=== PATIENT | female | born 1985 | race Caucasian/White ===

== ENCOUNTER → 2018-05-14 | Outpatient (CLI) | payer BC ==
--- NOTE | 2018-05-14 18:19 | RADIOLOGY REPORT (SQ) ---
EXAM DESCRIPTION: TOE LEFT COMPLETED DATE/TIME: 05/14/2018 6:09 pm REASON FOR STUDY: PAIN IN left TOE M79.674 PAIN IN RIGHT TOE(S) COMPARISON: None. NUMBER OF VIEWS: Three views. TECHNIQUE: AP, lateral, and oblique images acquired of the left first toe. LIMITATIONS: None. FINDINGS: MINERALIZATION: Normal. BONES: No acute fracture or dislocation. No worrisome bone lesions. JOINTS: No effusions. SOFT TISSUES: No soft tissue swelling. No foreign body. OTHER: No other significant finding. IMPRESSION: NEGATIVE STUDY OF THE LEFT TOE. NO RADIOGRAPHIC EVIDENCE OF ACUTE INJURY. COMMENT: SITE OF TRAUMA/COMPLAINT MARKED/STAMP COMPLETED: Yes TECHNICAL DOCUMENTATION: JOB ID: [id number]- All Rights Reserved Reading location - IP/workstation name: [email or web address]
== END ==
LOC: RAD 17:33
PROVIDERS: ATTEND Nurse Practitioner Family
DX: M79.674 Pain in right toe(s) (principal)

== ENCOUNTER 2019-03-02 16:27 | Emergency (ER) | payer BC, OTHER ==
--- NOTE | 2019-03-02 17:47 | ER Document Report ---
ED Medical Screen (RME) - General Chief Complaint: Abnormal Lab Results Stated Complaint: ABNORMAL LABS, SHORT OF BREATH Time Seen by Provider: 03/02/19 17:39 Primary Care Provider: ARMIN GRAY [Primary Care Provider] - Follow up as needed Notes: Patient is a 33-year-old female with a history of ITP and anemia who presents to emergency department with a chief complaint of dizziness. Patient reports earlier this morning she was at work around 930 when she went to go use the restroom. Patient reports she is on her menstrual cycle and did notice some clots in the toilet. Patient reports she got up was washing her hands when she started to see stars. Patient reports she felt like she was going to pass out but did not. Patient reports she did sit down at that time and drink a glass of orange juice. Patient reports that she is felt nauseous and fatigued. Patient reports she did have labs drawn at [facility] and reports a hemoglobin of 8.6. Patient reports she has had a tubal ligation and does have regular periods that are not heavy. Patient reports she did take 65 mg tablets x2 of iron today. TRAVEL OUTSIDE OF THE [place] IN LAST 30 DAYS: No - Related Data Allergies/Adverse Reactions: No Known Drug Allergies Allergy (Verified 03/02/19 17:29) Past Medical History - Social History Chew tobacco use (# tins/day): No Frequency of alcohol use: None Drug Abuse: None Past Surgical History: Reports: Hx Section, Hx Oral Surgery - Immunizations Immunizations up to date: Yes Hx Diphtheria, Pertussis, Tetanus Vaccination: Yes Physical Exam - Vital signs Vitals: Temp Pulse Resp BP Pulse Ox 98.1 F 79 16 133/80 H 100 03/02/19 16:30 03/02/19 16:30 03/02/19 16:30 03/02/19 16:30 03/02/19 16:30 Course - Re-evaluation Re-evalutation: 03/02/19 17:46 I have greeted and performed a rapid initial assessment of this patient. A comprehensive ED assessment and evaluation of the patient, analysis of test results and completion of the medical decision making process will be conducted by additional ED providers. - Vital Signs Vital signs: Temp Pulse Resp BP Pulse Ox 98.1 F 79 16 133/80 H 100 03/02/19 16:30 03/02/19 16:30 03/02/19 16:30 03/02/19 16:30 03/02/19 16:30 Doctor's Discharge - Discharge Referrals: LOCALMD,NO [Primary Care Provider] - Follow up as needed
[2019-03-02 18:23] LABS: ABSOLUTE BASOPHILS # (AUTO) 0.1 10^3/uL (0.0-0.2); ABSOLUTE LYMPHOCYTES (AUTO) 1.6 10^3/uL (0.5-4.7); ABSOLUTE MONOCYTES (AUTO) 0.3 10^3/uL (0.1-1.4); ABSOLUTE NEUT (AUTO) 3.3 10^3/uL (1.7-8.2); BASOPHILS % (AUTO) 1.1 % (0-2); EOSINOPHILS % (AUTO) 0.6 % (0-6); HEMATOCRIT 29.7 % (36.0-47.0); HEMOGLOBIN 9.1 g/dL (12.0-15.5); LYMPHOCYTES % (AUTO) 29.6 % (13-45); MEAN CORPUSCULAR HEMOGLOBIN 19.9 pg (27.0-33.4); MEAN CORPUSCULAR HGB CONC 30.5 g/dL (32.0-36.0); MEAN CORPUSCULAR VOLUME 65 fl (80-97); MONOCYTES % (AUTO) 5.4 % (3-13); PLATELET COUNT 336 10^3/uL (150-450); RED BLOOD COUNT 4.57 10^6/uL (3.72-5.28); RED CELL DISTRIBUTION WIDTH 16.7 % (11.5-14.0); SEGMENTED NEUTROPHILS % (AUTO) 63.3 % (42-78); TOTAL CELLS COUNTED % (AUTO) 100 %; WHITE BLOOD COUNT 5.3 10^3/uL (4.0-10.5)
[2019-03-02 18:35] LABS: INTERNATIONAL RATION (INR) 1.11; PROTHROMBIN TIME 14.3 SEC (11.4-15.4)
[2019-03-02 18:36] LABS: PARTIAL THROMBOPLASTIN TIME 31.5 SEC (23.5-35.8)
[2019-03-02 18:44] LABS: ALBUMIN 4.9 g/dL (3.5-5.0); ALKALINE PHOSPHATASE 84 U/L (38-126); ANION GAP 16 (5-19); ASPARTATE AMINO TRANSFERASE 17 U/L (14-36); BILIRUBIN,DIRECT 0.1 mg/dL (0.0-0.4); BILIRUBIN,TOTAL 0.4 mg/dL (0.2-1.3); BLOOD UREA NITROGEN 8 mg/dL (7-20); CALCIUM 10.1 mg/dL (8.4-10.2); CARBON DIOXIDE 21 mmol/L (22-30); CHLORIDE 104 mmol/L (98-107); GLUCOSE 103 mg/dL (75-110); TOTAL PROTEIN 8.7 g/dL (6.3-8.2)
[2019-03-02 19:10] LABS: BILIRUBIN,URINE NEGATIVE (NEGATIVE); GLUCOSE, URINE NEGATIVE (NEGATIVE); KETONES,URINE NEGATIVE (NEGATIVE); LEUKOCYTE ESTERASE,URINE TRACE (NEGATIVE); NITRITE,URINE NEGATIVE (NEGATIVE); PROTEIN,URINE 100 mg/dL (NEGATIVE); URINE SPECIFIC GRAVITY 1.016; UROBILINOGEN,URINE NEGATIVE mg/dL (<2.0)
[2019-03-02] MEDS ORDERED: NORMAL SALINE 1000 ML 1,000 ML IV ONE (19:11)
[2019-03-02 19:15] LABS: APPEARANCE,URINE TURBID; COLOR,URINE RED
--- NOTE | 2019-03-02 19:39 | ER Document Report ---
ED General - General Chief Complaint: Abnormal Lab Results Stated Complaint: ABNORMAL LABS, SHORT OF BREATH Time Seen by Provider: 03/02/19 17:39 Primary Care Provider: DEVIN CARRIZALES MD [ACTIVE STAFF] - Follow up as needed TRAVEL OUTSIDE OF THE [place] IN LAST 30 DAYS: No - HPI Notes: Patient is a 33-year-old female with a history of anemia and ITP who presents complaining of having a hemoglobin of 8.6 this morning at [facility]. Patient states that she had blood work performed because she felt dizzy with a near syncopal episode. Patient states that she is currently on day 3 of her menstrual cycle and did have some clotting today. She is otherwise able to eat and drink without difficulty. She is urinating normally and having normal bowel movements. Patient states that she is currently feeling well and has not had any recurrence of the near syncopal episodes. Patient states that she did take some iron today as well. Denies drug allergies. She has never needed a transfusion in the past. Denies any headache, fever, neck pain, changes in vision/speech/mentation/hearing, URI, sore throat, chest pain, palpitations, syncope, cough, shortness of breath, wheeze, dyspnea, abdominal pain, nausea/vomiting/diarrhea, urinary retention, dysuria, hematuria, loss of control of bowel or bladder, numbness/tingling, saddle anesthesia, muscle paralysis/weakness, or rash. - Related Data Allergies/Adverse Reactions: No Known Drug Allergies Allergy (Verified 03/02/19 17:29) Past Medical History - Social History Smoking Status: Never Smoker Chew tobacco use (# tins/day): No Frequency of alcohol use: None Drug Abuse: None Family History: Reviewed & Not Pertinent Patient has suicidal ideation: No Patient has homicidal ideation: No Past Surgical History: Reports: Hx Section, Hx Oral Surgery - Immunizations Immunizations up to date: Yes Hx Diphtheria, Pertussis, Tetanus Vaccination: Yes Review of Systems - Review of Systems -: Yes All other systems reviewed and negative Physical Exam - Vital signs Vitals: Temp Pulse Resp BP Pulse Ox 98.1 F 79 16 133/80 H 100 03/02/19 16:30 03/02/19 16:30 03/02/19 16:30 03/02/19 16:30 03/02/19 16:30 - Notes Notes: PHYSICAL EXAMINATION: GENERAL: Well-appearing, well-nourished and in no acute distress. A&Ox4. Answers questions appropriately. HEAD: Atraumatic, normocephalic. Non-tender. EYES: Pupils equal round and reactive to light, extraocular movements intact, sclera anicteric, conjunctiva are normal. No nystagmus. vis johnson intact. ENT: Nares patent and without discharge. oropharynx clear without exudates. No tonsilar hypertrophy or erythema. Moist mucous membranes. NECK: Normal range of motion, supple without lymphadenopathy. No ri gidity/meningismus. No midline tenderness. LUNGS: Breath sounds clear to auscultation bilaterally and equal. No wheezes rales or rhonchi. HEART: Regular rate and rhythm without murmurs, rubs, gallops. ABDOMEN: Soft, nontender, nondistended abdomen. No guarding, no rebound. Normal bowel sounds present. No CVA tenderness bilaterally. Musculoskeletal: Ext b/l: FROM to passive/active. Strength 5+/5. No deficits noted. No bony tenderness of extremities. Extremities: No cyanosis, clubbing, or edema b/l. Peripheral pulses 2+. Capillary refill less than 2 seconds. NEUROLOGICAL: NIH 0. GCS 15. Cranial nerves grossly intact. Normal speech, normal gait. Normal sensory, motor exams. Reflexes 2+ b/l. AVNI's negative. Pronator drift negative. Heel/brooks, finger/nose wnl. Romberg neg. PSYCH: Normal mood, normal affect. SKIN: Warm, Dry, normal turgor, no rashes or lesions noted. Course - Re-evaluation Re-evalutation: 03/02/19 20:35 Patient is an afebrile, well-hydrated, 33-year-old female who presents with anemia and near syncopal episode, currently asymptomatic. Vitals are acceptable without significant tachycardia, tachypnea, hypoxia, hypotension. PE is otherwise unremarkable for any focal neurological deficits. Patient is nontoxic-appearing and is tolerating p.o. without difficulty. Patient had a hemoglobin report of 8.6 that she brought with her earlier today, but is currently 9.1. She does appear to be iron deficient. She had a low ferritin on morning labs that she brought with her. Orthostatics acceptable. Labs are otherwise unremarkable. UC pending and will not be started on antibiotic as I suspect possible contaminant as she otherwise asymptomatic. I do suspect her symptoms to be related to her anemia. No further work-up warranted at this time. No transfusion warranted. Low suspicion/risk for acute abdomen, acute blood loss warranting transfusion, sepsis, severe dehydration, or other systemic emergent condition at this time. Patient is aware that her condition can change from initial presentation and she needs to monitor symptoms closely and seek medical attention if any acute changes. Conservative measures otherwise for symptoms. Recheck with your PCM in 2-3 days. Return to the ED with any worsening/concerning symptoms otherwise as reviewed in discharge. Patient is in agreement. - Vital Signs Vital signs: Temp Pulse Resp BP Pulse Ox 98.1 F 76 16 130/70 H 100 03/02/19 16:30 03/02/19 19:35 03/02/19 16:30 03/02/19 19:35 03/02/19 16:30 - Laboratory Result Diagrams: 03/02/19 18:05 03/02/19 18:05 Laboratory results interpreted by me: 03/02/19 03/02/19 03/02/19 18:05 18:05 18:45 Hgb 9.1 L Hct 29.7 L MCV 65 L MCH 19.9 L MCHC 30.5 L RDW 16.7 H Carbon Dioxide 21 L Creatinine 0.51 L Total Protein 8.7 H Urine Protein 100 H Urine Blood MODERATE H Ur Leukocyte Esterase TRACE H Discharge - Discharge Clinical Impression: Near syncope Anemia Qualifiers: Anemia type: iron deficiency Iron deficiency anemia type: unspecified iron deficiency Qualified Code(s): D50.9 - Iron deficiency anemia, unspecified Condition: Stable Disposition: HOME, SELF-CARE Additional Instructions: Maintain adequate fluid and food intake Take home medications as directed Healthy diet Take iron supplements Monitor blood pressure/heart rate daily and keep a log Monitor symptoms for any acute changes Recheck with your PCM in 2-3 days Return to the ED with any worsening symptoms and/or development of fever, headache, chest pain, palpitations, syncope, shortness of breath, trouble breathing, abdominal pain, n/v/d, blood in stool/urine, loss of control of bowel/bladder, urinary retention, muscle weakness/paralysis, numbness/tingling, or other worsening symptoms that are concerning to you. Forms: Elevated Blood Pressure Referrals: DEVIN CARRIZALES MD [ACTIVE STAFF] - Follow up as needed
[2019-03-02 20:45] VITALS: BP 127/81
== END 2019-03-02 20:45 | disposition home or self-care (01) ==
LOC: ER 16:27
DX: D50.9 Iron deficiency anemia, unspecified (principal); R55 Syncope and collapse
CPT/HCPCS: 99284; 96360; 36415; 87086; 84443; 84703; 85025; 85610; 85730; 80053; 81001; J7030